=== PATIENT | male | born 1990 | race American Indian/Alaskan Native ===

== ENCOUNTER 2017-06-29 09:36 | Emergency (ER) | payer SELFPAY ==
[2017-06-29 10:04] VITALS: BP 154/103
[2017-06-29 10:58] LABS: Bacteria,Urine 1+ /HPF (Negative); Bilirubin,Urine NEG (Negative); Blood,Urine SM (Negative); Color,Urine Yellow (Yellow); Mucus,Urine FEW /HPF; Protein,Urine <15 mg/dL mg/dL (Negative); Urobilinogen,Urine < 2.0 mg/dL (<2.0)
[2017-06-29 11:02] LABS: Basophils % (Auto) 0.4 % (0.0-1.8); Eosinophils # (Auto) 0.3 K/mm3 (0.0-0.4); Eosinophils % (Auto) 2.6 % (0.0-4.3); Hematocrit 46.5 % (35.5-45.6); Hemoglobin 15.6 gm/dl (11.8-15.2); Lymphocytes # (Auto) 1.9 K/mm3 (1.2-5.4); Lymphocytes % (Auto) 18.4 % (13.4-35.0); Mean Corpuscular HGB Conc 34 % (32-34); Mean Corpuscular Hemoglobin 32 pg (28-32); Mean Corpuscular Volume 94 fl (84-94); Monocytes # (Auto) 0.8 K/mm3 (0.0-0.8); Monocytes % (Auto) 8.2 % (0.0-7.3); Platelet Count 217 K/mm3 (140-440); Red Blood Count 4.94 M/mm3 (3.65-5.03); Red Cell Distribution Width 13.5 % (13.2-15.2)
[2017-06-29 11:12] LABS: Amphetamine Screen,Urine PRESUMPTIVE NEGATIVE; Benzodiazepines Screen,Urine PRESUMPTIVE NEGATIVE; Cannabinoid Screen,Urine PRESUMPTIVE NEGATIVE; Cocaine Screen,Urine PRESUMPTIVE NEGATIVE; Methadone Screen,Urine PRESUMPTIVE NEGATIVE; Opiate Screen,Urine PRESUMPTIVE NEGATIVE
[2017-06-29 11:14] LABS: BUN/Creatinine Ratio 10; Blood Urea Nitrogen 9 mg/dL (9-20); Calcium 9.5 mg/dL (8.4-10.2); Hemolysis Index 18
--- NOTE | 2017-06-29 11:53 | Emergency Department Report ---
ED Medical Clearance [facility] - General Chief complaint: Medical Clearance Stated complaint: MEDICAL CLEARENCE Time Seen by Provider: 06/29/17 11:38 Source: patient Mode of arrival: Ambulatory - History of Present Illness Initial comments: This is a 26-year-old male nontoxic, well nourished in appearance, no acute signs of distress presents to the ED with c/o of medical clearance for [facility]. Patient stated he had been depressed and has been drinking alcohol. Patient stated last alcohol consumption was 3 days ago. Patient denies suicidal or homicidal indication. Patient denies any chest pain, shortness of breath, fever, chills, nausea, vomiting, numbness or tingling. Patient denies any allergies or significant past medical history. MD Complaint: medical clearance request Reason for Medical Clearance: medical condition Alledged Intoxication: No Traumatic Symptoms: denies traumatic injury Associated Symptoms: denies other symptoms. denies: chest pain, shortness of breath, palpitations, diaphoresis, confusion, cough, fever/chills, headaches, anorexia, malaise, nausea/vomiting, rash, seizure, syncope, weakness Treatments Prior to Arrival: none Allergies/Adverse reactions: Allergies Allergy/AdvReac Type Severity Reaction Status Date / Time No Known Allergies Allergy Unverified 06/29/17 09:58 ED Review of Systems ROS: Stated complaint: MEDICAL CLEARENCE Other details as noted in HPI Constitutional: denies: chills, fever Eyes: denies: eye pain, eye discharge, vision change ENT: denies: ear pain, throat pain Respiratory: denies: cough, shortness of breath, wheezing Cardiovascular: denies: chest pain, palpitations Endocrine: no symptoms reported Gastrointestinal: denies: abdominal pain, nausea, diarrhea Genitourinary: denies: urgency, dysuria Musculoskeletal: denies: back pain, joint swelling, arthralgia Skin: denies: rash, lesions Neurological: denies: headache, weakness, paresthesias Psychiatric: denies: anxiety, depression Hematological/Lymphatic: denies: easy bleeding, easy bruising ED Past Medical Hx - Past Medical History Previous Medical History?: No - Surgical History Past Surgical History?: No - Social History Smoking Status: Never Smoker Substance Use Type: None ED Physical Exam - General Limitations: No Limitations General appearance: alert, in no apparent distress - Head Head exam: Present: atraumatic, normocephalic - Eye Eye exam: Present: normal appearance - ENT ENT exam: Present: mucous membranes moist - Neck Neck exam: Present: normal inspection - Respiratory Respiratory exam: Present: normal lung sounds bilaterally. Absent: respiratory distress - Cardiovascular Cardiovascular Exam: Present: regular rate, normal rhythm. Absent: systolic murmur, diastolic murmur, rubs, gallop - GI/Abdominal GI/Abdominal exam: Present: soft, normal bowel sounds - Rectal Rectal exam: Present: deferred - Extremities Exam Extremities exam: Present: normal inspection - Back Exam Back exam: Present: normal inspection - Neurological Exam Neurological exam: Present: alert, oriented X3 - Psychiatric Psychiatric exam: Present: normal affect, normal mood - Skin Skin exam: Present: warm, dry, intact, normal color. Absent: rash ED Course Vital Signs 06/29/17 09:58 Temperature 98.4 F Pulse Rate 104 H Respiratory 18 Rate Blood Pressure 154/103 O2 Sat by Pulse 100 Oximetry - Reevaluation(s) Reevaluation #1: 06/29/17 11:51 Patient is speaking in full sentences with no signs of distress noted. ED Medical Decision Making - Lab Data Result diagrams: 06/29/17 10:40 06/29/17 10:40 - Medical Decision Making This is a 26-year-old male that presents with medical clearance. Patient is stable and was examined by me. Labs within normal limits. Negative drug panel screen. Negative blood alcohol level. Patient is medically cleared. Denies SI /HI. I called the [facility] which they confirmed patient is accepted to them and is waiting for medical clearance. They stated they want to know which substance is in his system. At time of discharge, the patient does not seem toxic or ill in appearance. No acute signs of distress noted. Patient agrees to discharge treatment plan of care. No further questions noted by the patient. ED Disposition Clinical Impression: Depression Qualifiers: Depression Type: unspecified Qualified Code(s): F32.9 - Major depressive disorder, single episode, unspecified Disposition: DC-01 TO HOME OR SELFCARE Is pt being admited?: No Does the pt Need Aspirin: No Condition: Stable Instructions: Depression (ED) Additional Instructions: Follow-up with a primary care doctor in 3-5 days or if symptoms worsen and continue return to emergency room as soon as possible. Referrals: PRIMARY CARE, [Referring] - 3-5 Days AMANDA HARDY MD [Staff Physician] - 3-[address] [facility] [Outside] - 3-5 Days
== END 2017-06-29 12:01 | disposition home or self-care (01) ==
LOC: ED 09:36
DX: F32.9 Major depressive disorder, single episode, unspecified (principal)
CPT/HCPCS: 36415; 80048; 80307; 81001; 85025; 99285; G0480; 80320